=== PATIENT | male | born 1950 | race Caucasian/White ===

== ENCOUNTER → 2023-06-24 | Emergency (ER) | payer BC, OTHER ==
[~2023-06-24] MED LIST: DOXYCYCLINE 100 MG CAP PO ONE; HYDROCODONE/APAP 5/325 MG TAB ONE; TDAP (DIPHTH,PERTUSS(ACELL),TET VAC) 0.5 ML VIAL IMVAC ONE
--- OUTSIDE RECORDS SUMMARY | 2023-06-24 19:07 | XMS REPORT | Continuity of Care Document ---
Author Name Unknown Address [address] [facility] [address] th[address] Address [address] [facility]. 1 [address] [place] [address] Care Team Providers Care Features Reporter Name Role Phone LENA BRAR Primary Care Physician Unavailab LENA Jack Attending Clinician Unavailable MARJ, DR MICK APARICIO Attending Clinician Un available MARJ, DR MICK APARICIO Admitting Clinician Un available Payers Payer Name Policy Type Policy Number Effective Date Expirati on Date Source [id number] Encounters Start Date/Time End Date/Time Encounter Type Admission Type Attending Clinicians Care Facility Care Department Encounter ID Source 2021-03-14 10:04:33 Outpatient MASON CUEVAS [id number] 09 [facility] 2021-03-17 08:45:00 2021-03-17 08:45:00 Outpatient LENA AVILA [id number] [facility] 2007-12-24 04:49:00 2007-12-24 23:59:00 Outpatient 3 MICK MCMAHAN [facility] [id number] [facility]EMMANUEL/GRICELDA V/SA)
--- NOTE | 2023-06-24 20:02 | ER ---
Nurse's Notes [facility] Name: Greg You Age: 73 yrs Sex: Male : 1950 Arrival Date: 06/24/2023 Time: 19:03 Bed 11 Private MD: Diagnosis: abrasions of sole of left foot Presentation: 06/24 19:17 Chief complaint: Patient states: slid down the [place] and now has skin tears to km8 bilateral soles of feet; pt having pain to both feet, left worse than right; denies hx of diabetes. Coronavirus screen: Client denies travel out of the [place] in the last 14 days. Ebola Screen: No symptoms or risks identified at this time. Initial Sepsis Screen: Does the patient meet any 2 criteria? No. Patient's initial sepsis screen is negative. Does the patient have a suspected source of infection? No. Patient's initial sepsis screen is negative. Risk Assessment: Do you want to hurt yourself or someone else? Patient reports no desire to harm self or others. Onset of symptoms was June 24, 2023 at 15:30. 19:17 Method Of Arrival: Ambulatory km8 19:17 Acuity: JOSEFINA 3 km8 Triage Assessment: 19:19 General: Appears in no apparent distress. comfortable, Behavior is calm, cooperative, km8 appropriate for age. Pain: Complains of pain in right foot and left foot Pain currently is 4 out of 10 on a pain scale. EENT: No signs and/or symptoms were reported regarding the EENT system. Neuro: Level of Consciousness is awake, alert, obeys commands, Oriented to person, place, time, situation. Cardiovascular: Denies chest pain, shortness of breath, Capillary refill < 3 seconds Patient's skin is warm and dry. Respiratory: Airway is patent Respiratory effort is even, unlabored, Respiratory pattern is regular, symmetrical. GI: No signs and/or symptoms were reported involving the gastrointestinal system. : No signs and/or symptoms were reported regarding the genitourinary system. Derm: Skin is intact, is healthy with good turgor, Skin is dry, Skin is pink, warm \T\ dry. normal, Skin temperature is warm Wound noted right foot and left foot Wound is skin tears/abrasions. Musculoskeletal: No signs and/or symptoms reported regarding the musculoskeletal system. Circulation, motion, and sensation intact. Range of motion: intact in all extremities. Historical: - Allergies: 19:19 No Known Allergies; 8 - Home Meds: 19:19 blood pressure medication [Active]; km8 - PMHx: 19:19 Hypertensive disorder; km8 - PSHx: 19:19 back; km8 - Immunization history:: Client reports receiving the 2nd dose of the Covid vaccine, Flu vaccine is not up to date. - Social history:: Smoking status: Patient/guardian denies using tobacco, but has a distant history of tobacco abuse, Patient/guardian denies using alcohol, street drugs. Screenin:57 [facility] ED Fall Risk Assessment (Adult) History of falling in the last 3 months, al1 including since admission Yes- single mechanical fall (1 pt) Confusion or Disorientation No (0 pts) Intoxicated or Sedated No (0 pts) Impaired Gait No (0 pts) Mobility Assist Device Used No (0 pt) Altered Elimination No (0 pt) Score/Fall Risk Level 0 - 2 = Low Risk Maintained a safe environment, Provided non-skid footwear, Hourly rounding (assess needs \T\ fall precautionary measures) done. Abuse screen: Denies threats or abuse. Nutritional screening: No deficits noted. Tuberculosis screening: No symptoms or risk factors identified. Assessment: 19:57 Reassessment: No changes from previously documented assessment. al1 Vital Signs: 19:17 BP 189 / 116; Pulse 77; Resp 16; Temp 98.8(TE); Pulse Ox 95% on R/A; Weight 117.93 kg 8 (R); Height 6 ft. 4 in. (R); Pain 4/10; 20:41 BP 188 / 101; Pulse 66; Resp 18; Pulse Ox 97% on R/A; me1 19:17 Body Mass Index 31.65 (117.93 kg, 193.04 cm) [facility] 19:17 Pain Scale: Adult [facility] ED Course: 19:08 Patient arrived in ED. mr 19:09 Ann-Maire Nascimento PA-C is PHCP. sb4 19:09 Kamaljit Conway MD is Attending Physician. sb4 19:19 Triage completed. [facility] 19:19 Arm band placed on right wrist. 8 19:50 Elidia Abbott, RN is Primary Nurse. me1 19:57 Patient has correct armband on for positive identification. Bed in low position. Call me1 light in reach. Side rails up X 1. Provided Education on: POC. Verbalized understanding. . 19:57 No provider procedures requiring assistance completed. Patient did not have IV access me1 during this emergency room visit. Administered Medications: 19:53 Drug: Boostrix Tdap IM 0.5 ml IM once; as a single dose {Note: LOT: [id number] exp: me1 05/18/25.} Route: IM; Site: right deltoid; 20:40 Follow up: Response: No adverse reaction; Nausea is decreased me1 19:57 Drug: Doxycycline PO 100 mg PO once Route: PO; me1 20:40 Follow up: Response: No adverse reaction me1 19:57 Drug: HYDROcodone-acetaminophen PO 5 mg-325 mg 2 tabs PO once Route: PO; me1 20:40 Follow up: Response: No adverse reaction; Pain is decreased me1 Medication: 19:57 Vaccine Information Statement (VIS) provided today. Questions and/or concerns me1 addressed. VIS edition date: December 09, 2020. Outcome: 20:02 Discharge ordered by . sb4 20:41 Discharged to home via wheelchair, with friend, me1 20:41 Condition: stable 20:41 Discharge instructions given to patient, Instructed on discharge instructions, follow up and referral plans. medication usage, Demonstrated understanding of instructions, follow-up care, medications, Prescriptions given X 2, 20:42 Patient left the ED. me1 Signatures: Ashia Herbert, Reg Reg Ann-Marie Fitzpatrick, PAShanaC PAShanaC sb4 Elidia Abbott, RN RN me1 Marsha Campbell RN RN km8
--- NOTE | 2023-06-24 20:03 | EDPHYS ---
Physician Documentation [facility] Name: Greg You Age: 73 yrs Sex: Male : 1950 Arrival Date: 06/24/2023 Time: 19:03 Bed 11 Private MD: ED Physician Kamaljit Conway HPI: 06/24 19:46 This 73 yrs old Male presents to ER via Ambulatory with complaints of Fall Injury. sb4 19:46 patient states [place] up the sole of his sb4 left foot. no history of diabetes. cleaned and dressed his wounds at home. complains of pain in his foot. no excessive bleeding. no foreign body present. tetanus not up to date. Historical: - Allergies: 19:19 No Known Allergies; km8 - Home Meds: 19:19 blood pressure medication [Active]; km8 - PMHx: 19:19 Hypertensive disorder; km8 - PSHx: 19:19 back; km8 - Immunization history:: Client reports receiving the 2nd dose of the Covid vaccine, Flu vaccine is not up to date. - Social history:: Smoking status: Patient/guardian denies using tobacco, but has a distant history of tobacco abuse, Patient/guardian denies using alcohol, street drugs. ROS: 19:46 Constitutional: Negative for fever, chills, and weight loss, sb4 19:46 Skin: Positive for abrasion(s), of the plantar aspect of left first toe and arch of left foot, 19:46 All other systems are negative, Exam: 20:00 Constitutional: This is a well developed, well nourished patient who is awake, alert, sb4 and in no acute distress. 20:00 Skin: injury, abrasion(s), moderate sized abrasion noted, of the arch of left foot and plantar aspect of left first toe, Vital Signs: 19:17 BP 189 / 116; Pulse 77; Resp 16; Temp 98.8(TE); Pulse Ox 95% on R/A; Weight 117.93 kg km8 (R); Height 6 ft. 4 in. (R); Pain 4/10; 20:41 BP 188 / 101; Pulse 66; Resp 18; Pulse Ox 97% on R/A; me1 19:17 Body Mass Index 31.65 (117.93 kg, 193.04 cm) [facility] 19:17 Pain Scale: Adult km8 MDM: 19:22 Patient medically screened. sb4 20:01 Data reviewed: vital signs, nurses notes, and as a result, I will discharge patient. sb4 Counseling: I had a detailed discussion with the patient and/or guardian regarding the historical points, exam findings, and any diagnostic results supporting the discharge/admit diagnosis, to return to the emergency department if symptoms worsen or persist or if there are any questions or concerns that arise at home. 06/24 19:32 Order name: Wound Care; Complete Time: 20:40 sb4 Administered Medications: 19:53 Drug: Boostrix Tdap IM 0.5 ml IM once; as a single dose {Note: LOT: [id number] exp: me1 05/18/25.} Route: IM; Site: right deltoid; 20:40 Follow up: Response: No adverse reaction; Nausea is decreased me1 19:57 Drug: Doxycycline PO 100 mg PO once Route: PO; me1 20:40 Follow up: Response: No adverse reaction me1 19:57 Drug: HYDROcodone-acetaminophen PO 5 mg-325 mg 2 tabs PO once Route: PO; me1 20:40 Follow up: Response: No adverse reaction; Pain is decreased me1 Disposition Summary: 06/24/23 20:02 Discharge Ordered Notes: Location: Home sb4 Problem: new sb4 Symptoms: are unchanged sb4 Condition: Stable sb4 Diagnosis - abrasions of sole of left foot sb4 Followup: sb4 - With: Emergency Department - When: As needed - Reason: Trouble breathing, Worsening of condition Discharge Instructions: - Discharge Summary Sheet sb4 - Abrasion, [id number] sb4 Forms: - Medication Reconciliation Form sb4 - Thank You Letter sb4 - Antibiotic Education sb4 - Prescription Opioid Use sb4 - Patient Portal Instructions sb4 - Leadership Thank You Letter sb4 Prescriptions: - Doxycycline Hyclate 100 mg Oral Tablet - take 1 tablet ORAL route every 12 hours; 20 tablet; Refills: 0, Product sb4 Selection Permitted - Tramadol 50 mg Oral Tablet - take 1 tablet ORAL route every 8 hours as needed; 12 tablet; Refills: 0, sb4 Product Selection Permitted Signatures: Ann-Marie Nascimento PA-C PA-C sb4 Elidia Abbott RN RN me1 Marsha Campbell, RN RN km8
[2023-06-24 21:03] VITALS: TEMP 98.8
[2023-06-24 21:27] VITALS: BP 188/101; O2SAT 97
== END ==
LOC: ER 19:03
DX: S90.812A Abrasion, left foot, initial encounter (principal); I10 Essential (primary) hypertension
CPT/HCPCS: 96372; 99284